=== PATIENT | female | born 1955 | race Caucasian/White ===

== ENCOUNTER 2019-01-13 13:06 | Emergency (ER) | payer OTHER ==
[~2019-01-13] VITALS: Ht 160 cm; Wt 58.1 kg
--- NOTE | 2019-01-13 13:21 | NUR ---
EKG IN TRIAGE.
[2019-01-13 13:27] VITALS: BP 131/80
--- NOTE | 2019-01-13 13:28 | NUR ---
PT HAS CO OF DIZZINESS AND HEADACHE STARTED LAST NIGHT. PT STATEST " THE ROOM SPINS WHEN I MOVE MY HEAD OR BEND OVER". SOME CO OF NAUSEA. NO VOMITING OR DIARHEA.
[2019-01-13] MEDS ORDERED: MECLIZINE CHEWABLE 25 MG TAB ONE (13:52)
[2019-01-13] MEDS ORDERED: MECLIZINE CHEWABLE 25 MG TAB PO ONE (14:00)
[2019-01-13 14:08] LABS: BASOPHILS # (AUTO) 0.02 x10^3/uL (0-0.1); BASOPHILS % (AUTO) 0 % (0-1); EOSINOPHILS # (AUTO) 0.01 x10^3/uL (0-0.4); EOSINOPHILS % (AUTO) 0 % (1-7); LYMPHOCYTES # (AUTO) 1.62 x10^3/uL (1-3.4); LYMPHOCYTES % (AUTO) 19 % (22-44); MD NO; MEAN CORPUSCULAR HEMOGLOBIN 31.3 pg (27.0-34.8); MEAN CORPUSCULAR HGB CONC 33.7 g/dL (32.4-35.8); MEAN CORPUSCULAR VOLUME 92.7 fL (80-100); MEAN PLATELET VOLUME 9.4 fL (7.4-10.4); MONOCYTES # (AUTO) 0.34 x10^3/uL (0.2-0.8); MONOCYTES % (AUTO) 4 % (2-9); NEUTROPHILS # (AUTO) 6.39 x10^3/uL (1.8-6.8); NEUTROPHILS % (AUTO) 76 % (42-75); PLATELET COUNT 255 x10^3/uL (130-400); RED BLOOD COUNT 4.79 x10^6/uL (3.82-5.3); RED CELL DISTRIBUTION WIDTH 12.3 % (9.6-15.2)
[2019-01-13 14:18] LABS: ALBUMIN 4.1 g/dL (3.4-5.0); ANION GAP 8 mmol/L (5-15); CALCIUM 9.2 mg/dL (8.5-10.1); CHLORIDE 104 mmol/L (98-107); CREATININE 0.92 mg/dL (0.55-1.02)
[2019-01-13] MEDS ORDERED: OMNIPAQUE 350 MG/ML, 100ML BOTTLE ONE (14:47)
== END 2019-01-13 15:45 | disposition home or self-care (01) ==
LOC: ED 13:35
DX: G44.52 New daily persistent headache (NDPH) (principal); I10 Essential (primary) hypertension; R42 Dizziness and giddiness
CPT/HCPCS: 36415; 70450; 70496; 70498; 80048; 82040; 85025; 93005; 99284; Q9967